=== PATIENT | female | born 1935 | race Two or more races ===

== ENCOUNTER 2016-12-28 13:06 | Emergency (ER) | payer OTHER, MEDICAID ==
[2016-12-28 13:28] VITALS: RESP 18; O2SAT 94
--- NOTE | 2016-12-28 14:27 | EDPHY ---
H & P Time Seen by Provider: 12/28/16 13:54 HPI/ROS: CHIEF COMPLAINT: right knee pain HISTORY OF PRESENT ILLNESS: 81-year-old female presents with right knee pain. 2 weeks ago, she bumped her knee on a piece of wood. She has had ongoing pain in her right knee since then. However, she has had increasing swelling and redness of the right knee 1 week ago. She saw her primary care physician who placed her on Bactrim. She continues to have the same pain. She is able to walk with mild pain. No fever or chills. Tetanus is up-to-date. ROS: No numbness, weakness, excessive bleeding, syncopal episode, other injury. Past Medical/Surgical History: Bilateral knee replacement Diabetes Hypertension Smoking Status: Never smoked Physical Exam: Alert and oriented, pleasant Extremities: right knee-there is a superficial area of swelling and fluctuance anteriorly, no joint effusion, no pain with range of motion of the right knee Skin: intact, slight erythema Neuro: Motor and sensory intact Vascular: Capillary refill brisk distally. Constitutional: Initial Vital Signs Temperature (C) 37.2 C 12/28/16 13:12 Heart Rate 68 12/28/16 13:12 Respiratory Rate 18 12/28/16 13:12 Blood Pressure 102/65 12/28/16 13:12 O2 Sat (%) 94 12/28/16 13:12 O2 Delivery Mode Room Air Allergies/Adverse Reactions: No Known Allergies Allergy (Unverified 12/28/16 13:09) Home Medications: Medication Instructions Recorded Bactrim DS 12/28/16 Levothyroxine 12/28/16 Lisinopril 12/28/16 Metformin HCl 12/28/16 Omeprazole 12/28/16 Medical Decision Making Procedures: Procedure: Abscess drainage. The patient's abscess was located on the right knee. Risks, benefits, alternatives discussed with the patient and consent obtained. The abscess was incised with a #11 blade and clotted blood as well as a small amount of purulent drainage was expressed. The wound was irrigated and packed. The patient tolerated the procedure well. The procedure was performed by myself. ED Course/Re-evaluation: This patient presents with a cutaneous abscess after a minor injury to her knee. I do not feel that imaging is required and I do not think that the injury involves the knee joint. A wound culture was sent after I and D of the abscess. She will continue Bactrim for now. Differential Diagnosis: Includes does not limited to joint infection, joint effusion, retained foreign body, cellulitis. - Data Points Microbiology Results: MICROBIOLOGY 12/28/16 14:20 Knee - Swab Gram Stain - Final 12/28/16 14:20 Knee - Swab Wound Culture - Preliminary Departure - Departure Disposition: Home, Routine, Self-Care Clinical Impression: Cutaneous abscess Condition: Good Instructions: Abscess (ED) Additional Instructions: Follow-up with your primary care physician in 2-3 days for packing removal. Continue taking Bactrim. Call in 2 days for culture results. Return to the emergency department for worsening symptoms or any concerns. 1. Martin romana mando de seguimiento con loomis proveedor medico en 2-3 waller para remover el empaque. 2. Continue tomando Bactrim. 3. Llame en 2 waller para los resultados de cultivo de laboratorio. 4. Regrese al departamento de emergencia si darline sintomas empeoran o por cualquier preocupacion. Referrals: UNKNOWN,CLINIC [Other] - As per Instructions Print Language: Slovak
[2016-12-28 14:54] VITALS: BP 106/70; PULSE 98; TEMP 98.4
== END 2016-12-28 14:54 | disposition home or self-care (01) ==
PROC: 0J9N0ZZ Drainage of Right Lower Leg Subcutaneous Tissue and Fascia, Open Approach (ICD-10-PCS; principal; 2016-12-28)
DX: L02.415 Cutaneous abscess of right lower limb (principal); I10 Essential (primary) hypertension; E11.9 Type 2 diabetes mellitus without complications; Z79.84 Long term (current) use of oral hypoglycemic drugs